=== PATIENT | female | born 1990 | race Caucasian/White ===

== ENCOUNTER 2021-01-29 09:21 | Outpatient (CLI) | payer OTHER ==
[~2021-01-29 09:21] MED LIST: COLACE 100MG C100 MG PO
[2021-01-30] MEDS ORDERED: MACROBID 100 M100 M1 PO (23:29)
[2021-01-30] MEDS ORDERED: PRENATAL VITAM1 EAC3 PO (23:31)
== END 2021-01-29 11:40 | disposition home or self-care (01) ==
LOC: GENOP 09:21
DX: O99.891 Other specified diseases and conditions complicating pregnancy (principal); R10.9 Unspecified abdominal pain; Z3A.24 24 weeks gestation of pregnancy; O99.012 Anemia complicating pregnancy, second trimester; D64.9 Anemia, unspecified; O34.211 Maternal care for low transverse scar from previous cesarean delivery; O99.342 Other mental disorders complicating pregnancy, second trimester; F32.9 Major depressive disorder, single episode, unspecified
CPT/HCPCS: 81001; 82731; G0463

== ENCOUNTER 2021-01-30 17:35 | Observation (INO) | payer OTHER ==
[~2021-01-30] VITALS: Ht 154.9 cm; Wt 63.5 kg
[2021-01-30 20:27] LABS: HEMOGLOBIN 9.1 gm/dl (12.3-15.3); RED BLOOD COUNT 3.75 M/UL (4.00-5.10); WHITE BLOOD COUNT 18.1 K/UL (4.5-11.0)
[2021-01-30 20:55] LABS: BUN/CREATININE RATIO 11 (0-10)
[2021-01-30] MEDS ORDERED: MACROBID 100 M100 M1 PO (23:29)
[2021-01-30] MEDS ORDERED: PRENATAL VITAM1 EAC3 PO (23:31)
[2021-01-31] MEDS ORDERED: ACETAMINOPHEN500 MG PO (09:05)
[2021-01-31] MEDS ORDERED: HYDROCODON-ACE1 EAC4 PO (09:05)
[2021-01-31] MEDS ORDERED: MACROBID 100 M100 MG PO (09:05)
[2021-01-31] MEDS ORDERED: CEPHALEXIN500 MG PO (09:05)
== END 2021-01-31 10:08 | disposition home or self-care (01) ==
LOC: GENOP 17:35 → OB 19:13
PROVIDERS: ADMIT Obstetrics & Gynecology
DX: O23.02 Infections of kidney in pregnancy, second trimester (principal); N12 Tubulo-interstitial nephritis, not specified as acute or chronic; Z3A.25 25 weeks gestation of pregnancy; Z20.822 Contact with and (suspected) exposure to COVID-19; Z88.0 Allergy status to penicillin
CPT/HCPCS: 59025; 80053; 81001; 85025; 87086; 96365; 96366; G0378; J0690; J7120; U0002

== ENCOUNTER 2021-04-22 23:22 | Outpatient (CLI) | payer OTHER ==
[~2021-04-22 23:22] MED LIST changes: +ACETAMINOPHEN500 MG PO; +CEPHALEXIN500 MG PO; +HYDROCODON-ACE1 EAC4 PO; +MACROBID 100 M100 M1 PO; +MACROBID 100 M100 MG PO; +PRENATAL VITAM1 EAC3 PO
== END 2021-04-23 01:05 | disposition home or self-care (01) ==
LOC: GENOP 23:22
DX: O36.8130 Decreased fetal movements, third trimester, not applicable or unspecified (principal); Z3A.36 36 weeks gestation of pregnancy; O24.419 Gestational diabetes mellitus in pregnancy, unspecified control; O99.013 Anemia complicating pregnancy, third trimester; D64.9 Anemia, unspecified
CPT/HCPCS: G0463

== ENCOUNTER 2021-04-25 00:37 | Emergency (ER) | payer OTHER ==
[2021-04-25 02:25] LABS: HEMOGLOBIN 12.1 gm/dl (12.3-15.3); RED BLOOD COUNT 4.86 M/UL (4.00-5.10); WHITE BLOOD COUNT 18.3 K/UL (4.5-11.0)
[2021-04-25 02:44] LABS: BUN/CREATININE RATIO 14 (0-10)
== END 2021-04-25 03:36 | disposition home or self-care (01) ==
LOC: ER1 00:37
PROVIDERS: Physician Assistant Medical
DX: O99.891 Other specified diseases and conditions complicating pregnancy (principal); R42 Dizziness and giddiness; O99.333 Smoking (tobacco) complicating pregnancy, third trimester; F17.290 Nicotine dependence, other tobacco product, uncomplicated; Z3A.37 37 weeks gestation of pregnancy; Z88.0 Allergy status to penicillin
CPT/HCPCS: 80053; 81001; 82550; 82553; 83874; 84439; 84443; 84484; 85025; 99284

== ENCOUNTER 2021-05-07 16:25 | Inpatient (IN) | payer OTHER ==
[~2021-05-07] VITALS: Ht 154.9 cm; Wt 71.2 kg
[2021-05-07 17:48] LABS: HEMOGLOBIN 11.3 gm/dl (12.3-15.3); RED BLOOD COUNT 4.64 M/UL (4.00-5.10); WHITE BLOOD COUNT 13.4 K/UL (4.5-11.0)
[2021-05-07] MEDS ORDERED: PROZAC 20 MG CA20 MG PO (18:01)
[2021-05-07] MEDS ORDERED: PRENATAL VITAM1 EAC3 PO (18:01)
[2021-05-08] MEDS ORDERED: DOCUSATE SODIU250 MG PO (18:00)
[2021-05-08] MEDS ORDERED: IBUPROFEN600 MG PO (18:00)
[2021-05-09 08:19] LABS: HEMOGLOBIN 10.9 gm/dl (12.3-15.3)
== END 2021-05-09 19:10 | disposition home or self-care (01) | DRG 807 ==
LOC: GENOP 16:25 → OB 17:10
PROVIDERS: Obstetrics & Gynecology; ADMIT Obstetrics & Gynecology
PROC: 0U7C7ZZ Dilation of Cervix, Via Natural or Artificial Opening (ICD-10-PCS; 2021-05-07)
PROC: 4A1HXCZ Monitoring of Products of Conception, Cardiac Rate, External Approach (ICD-10-PCS; 2021-05-07)
PROC: 10E0XZZ Delivery of Products of Conception, External Approach (ICD-10-PCS; principal; 2021-05-08)
PROC: 3E033VJ Introduction of Other Hormone into Peripheral Vein, Percutaneous Approach (ICD-10-PCS; 2021-05-08)
PROC: 10907ZC Drainage of Amniotic Fluid, Therapeutic from Products of Conception, Via Natural or Artificial Opening (ICD-10-PCS; 2021-05-08)
DX: O24.420 Gestational diabetes mellitus in childbirth, diet controlled (principal); Z37.0 Single live birth; Z3A.38 38 weeks gestation of pregnancy; Z20.822 Contact with and (suspected) exposure to COVID-19; Z88.0 Allergy status to penicillin; Z88.8 Allergy status to other drugs, medicaments and biological substances
CPT/HCPCS: 51702; 81001; 82962; 85014; 85018; 85025; J2590; J2795

== ENCOUNTER 2021-09-07 14:04 | Emergency (ER) | payer OTHER ==
[~2021-09-07 14:04] MED LIST changes: +DOCUSATE SODIU250 MG PO; +IBUPROFEN600 MG PO; +PROZAC 20 MG CA20 MG PO
[2021-09-07 15:10] LABS: HEMOGLOBIN 13.4 gm/dl (12.3-15.3); RED BLOOD COUNT 4.97 M/UL (4.00-5.10); WHITE BLOOD COUNT 15.5 K/UL (4.5-11.0)
[2021-09-07 15:45] LABS: BUN/CREATININE RATIO 23 (0-10)
[2021-09-07] MEDS ORDERED: ZOFRAN ODT 4 MG4 MG SL (20:09)
== END 2021-09-07 20:18 | disposition home or self-care (01) ==
LOC: ER1 14:04
PROVIDERS: Physician Assistant
DX: N83.202 Unspecified ovarian cyst, left side (principal); R19.7 Diarrhea, unspecified; R11.2 Nausea with vomiting, unspecified; Z88.0 Allergy status to penicillin; F17.200 Nicotine dependence, unspecified, uncomplicated
CPT/HCPCS: 76830; 80053; 81001; 82962; 84703; 85025; 96374; 99284; J2405; Q9967